=== PATIENT | female | born 1985 | race Caucasian/White ===

== ENCOUNTER → 2020-05-09 10:30 | Outpatient (CLI) | payer BC, SELFPAY ==
--- NOTE | ~2020-05-09 | XR_ITS ---
EXAMINATION: XR shoulder RT min 2V EXAM DATE: 05/09/2020 11:40 INDICATION: No known recent injury provided at this time. Pain of the right shoulder. TECHNIQUE: The following right shoulder projections obtained: frontal projection with internal rotati on, frontal projection with external rotation, Grashey, and axillary (4+ views). There is no prior s tudy for comparison. FINDINGS: No evidence of right shoulder rotator cuff calcific tendinosis. Unremarkable right laine ohumeral and acromioclavicular joints. There are no acute fractures or dislocations identified. Ther e is no subcutaneous gas. The soft tissue is unremarkable. There are no radiopaque foreign bodies. IMPRESSION: 1. Unremarkable right shoulder exam. Reviewed, dictated and finalized at location B.
== END ==
PROVIDERS: PCP Physician Assistant; Visit Provider Physician Assistant
DX: M25.511 Pain in right shoulder (principal)
CPT/HCPCS: 73030

== ENCOUNTER 2020-06-07 10:25 | Emergency (ER) | payer BC, SELFPAY ==
--- NOTE | 2020-06-07 10:48 | ED.UPPEXIN ---
HPI - Extremity Injury (Upper) General Chief Complaint: Extremity Injury, Upper Stated Complaint: right shoulder pain since january Time Seen by Provider: 06/07/20 10:30 Source: patient Mode of arrival: ambulatory Limitations: no limitations History of Present Illness HPI narrative: Patient presents for evaluation of right shoulder that has been persistently bothersome since January. Patient denies known mechanism of injury. Patient has been evaluated by her primary care and has had x-rays and has begun PT in the last week. Patient states that physical therapy warn her that her shoulder may be slightly sore however she is having more than soreness and feels that there is something more complicated occurring with her shoulder. Patient states that her primary care diagnosed her with frozen shoulder. She states that she contacted her primary care with her concerns and they caught her anymore tramadol but she wants additional investigation into the cause of her discomfort. Patient denies chance of due to uterine ablation and her having a vasectomy. Related Data Home Medications Medication Instructions Recorded Confirmed omeprazole 40 mg PO DAILY 08/17/19 naproxen 500 mg tablet 500 mg PO BID 05/09/20 05/09/20 Allergies Allergy/AdvReac Type Severity Reaction Status Date / Time amoxicillin Allergy Unknown Nausea and Verified 09/28/19 09:27 Vomiting diphenhydramine Allergy Unknown Unknown Verified 09/28/19 09:27 AMOXICILLIN TRIHYDRATE Allergy Intermediate VOMITTING Uncoded 09/28/19 09:27 POTASSIUM CLAVULANATE Allergy Intermediate VOMITTING Uncoded 09/28/19 09:27 Review of Systems Review of Systems: Narrative: CONSTITUTIONAL: Denies fever, chills, or sweats. EYES: Denies visual changes, redness, or discharge. ENT: Denies rhinorrhea, congestion, sore throat, or otalgia. CARDIOVASCULAR: Denies chest pain, palpitations, or edema. RESPIRATORY: Denies cough or dyspnea. GASTROINTESTINAL: Denies abdominal pain, nausea, vomiting, or diarrhea. GENITOURINARY: Denies dysuria or hematuria. SKIN: Denies rash or itching. MUSCULOSKELETAL: Right shoulder pain denies back pain or myalgia. NEUROLOGIC: Denies headache, numbness, dizziness, or weakness. PSYCHIATRIC: Denies anxiety or depression. [facility] Social History Social History (Updated 05/09/20 @ 10:00 by Kaila Fried) Social History: Smoking status: Never smoker Second hand tobacco smoke exposure: No Alcohol intake: current Drinks per week: 3 Substance use: never Substance use type: does not use Gender identity (if verbalized by the patient): Female Exam Narrative: Exam Narrative: GENERAL: Well-appearing, well-nourished, and in no acute distress. HEAD: Normocephalic, atraumatic. EYES: PERRLA and EOMI. ENT: Nares clear, no rhinorrhea or epistaxis. Mucous membranes moist. Oropharynx without tonsillar hypertrophy exudate or other lesions. Bilateral TMs pearly hoyt nonbulging CHEST: Clear to auscultation. No respiratory distress. No wheezes rales or rhonchi HEART: Regular rate and rhythm. EXTREMITIES: No outward signs of injury such as swelling, erythema or abrasions. Patient has decreased ability to abduct and pain over 45 degrees in the right shoulder. Patient reports pain to palpation to the anterior portion of the shoulder at rotator. No edema. SKIN: Warm, dry, no rash. NEURO: No focal deficits. Alert and oriented x3. PSYCH: Normal mood and affect. MDM - Extremity Injury (Upper) MDM Narrative Medical decision making narrative: Patient is already had x-ray imaging and has begun physical therapy. Patient denies chance of and has been unaware of where of the contraindications of with a Toradol injection. Patient has been instructed to contact her primary care or seek orthopedics referral as it appears that she may be at the point where MRI imaging highly beneficial for further investigation into the cause of her disco
[2020-06-07 11:11] VITALS: BP 147/90; PULSE 126; RESP 18; TEMP 36.4; O2SAT 100
[2020-06-07] MEDS: KETOROLAC 30 MG/ML VIAL (*BKC) IM (11:16)
== END 2020-06-07 11:28 | disposition home or self-care (01) ==
PROVIDERS: Emergency Provider Emergency Medicine; PCP Physician Assistant
DX: S49.91XA Unspecified injury of right shoulder and upper arm, initial encounter (principal); X58.XXXA Exposure to other specified factors, initial encounter
CPT/HCPCS: 96372; 99283; J1885

== ENCOUNTER 2020-08-20 06:33 | Outpatient (CLI) | payer BC, SELFPAY ==
--- NOTE | 2020-08-22 10:54 | WPDNEUROLOGY ---
Neurology EEG Report General Information Date of Study: 08/20/20 TEST eeg DIAGNOSIS altered sense of smell CONDITION OF RECORDING awake drowsy and sleep EEG NUMBER [id number] CLINICAL HISTORY patient reported for the last couple of months she has been having episodes of headaches and olfactory hallucinations EEG DESCRIPTION old record consists of low-voltage 15 to 21 hertz per 2nd beta activity during drowsiness. Photic stim impression produce normal drive. Hyperventilation not done. Bilateral symmetrical sleep activity seen during sleep. Non paroxysmal. Nonfocal. Nonlateralizing. IMPRESSION No significant abnormalities noted
== END 2020-08-20 06:34 | disposition home or self-care (01) ==
PROVIDERS: PCP Family Medicine; Visit Provider Physician Assistant
DX: R43.9 Unspecified disturbances of smell and taste (principal)
CPT/HCPCS: 95816

== ENCOUNTER → 2020-12-10 06:58 | Outpatient (CLI) | payer BC, SELFPAY ==
[2020-12-10 20:23] LABS: SARS-CoV-2 RNA PCR Negative
== END ==
PROVIDERS: PCP Family Medicine
DX: Z01.812 Encounter for preprocedural laboratory examination (principal); Z20.822 Contact with and (suspected) exposure to COVID-19
CPT/HCPCS: C9803; U0003; U0005

== ENCOUNTER 2022-11-11 10:49 | Outpatient (CLI) | payer BC, SELFPAY ==
--- NOTE | ~2022-11-11 | MR_ITS ---
MRI of the right calf CLINICAL HISTORY: Soft tissue mass TECHNIQUE: T1-weighted and STIR images were acquired in the axial, coronal, and sagittal planes. FINDINGS: Bone marrow signals are unremarkable. No fracture or bone marrow edema. No evidence for ost eomyelitis or periosteal reaction. Visualized joint spaces are intact. No joint effusion identified. There is diffuse edematous change of the medial gastrocnemius muscle belly. Remaining visualized musc ulature and STIR demonstrates normal signal intensity. Subcutaneous soft tissues are unremarkable asi de from minimal subcutaneous soft tissue edema. No focal mass or fluid collection evident. IMPRESSION: Diffuse edematous change of the medial gastrocnemius muscle belly. Correlate for diffuse low-grade mu scle strain, infectious/inflammatory myositis, or possibly denervation edema, though isolated involve ment of this muscle would be atypical. Reviewed, dictated and finalized at [facility]. [employer] IMPRESSION: Diffuse edematous change of the medial gastrocnemius muscle belly. Correlate fo r diffuse low-grade muscle strain, infectious/inflammatory myositis, or possibl y denervation edema, though isolated involvement of this muscle would be atypic al.
== END 2022-11-11 10:50 ==
LOC: MICIMG 10:50
PROVIDERS: PCP Family Medicine; Visit Provider Podiatrist Foot & Ankle Surgery
DX: R22.41 Localized swelling, mass and lump, right lower limb (principal)
CPT/HCPCS: 73718

== ENCOUNTER 2024-02-21 01:46 | Emergency (ER) | payer BC, SELFPAY ==
[2024-02-21] VITALS (24 sets, daily range): BP systolic 130–161; BP diastolic 70–93; PULSE 78–114; RESP 11–19; TEMP 37.4; O2SAT 95–100
--- NOTE | ~2024-02-21 | CT_ITS ---
EXAMINATION: CT abdomen pelvis w con DATE: 02/21/2024 03:07 INDICATION: Right lower quadrant abdominal pain TECHNIQUE: Computed tomography (CT) of the abdomen and pelvis was performed with 100 cc Omnipaque 350 intravenous contrast. The dose-length product was 1665.75 mGy-cm. Automated exposure control and ite rative reconstruction technique were employed. COMPARISON: CT dated 02/02/2018 FINDINGS: Lung bases unremarkable. No significant pleural or pericardial effusion. Heart size normal. Fatty infiltration of the liver. Status post cholecystectomy. The spleen, pancreas, adrenal glands n onobstructive bowel gas pattern. No significant vascular abnormality. No lymphadenopathy. There are a re surgical changes of the anterior abdominal wall. There is nonobstructing right nephrolithiasis. IMPRESSION: 1. No acute abdominal abnormality. 2: Nonobstructing right nephrolithiasis. Reviewed, dictated and finalized at location B.
[2024-02-21 02:08] LABS: Basophils Percent Auto 0.3 % (0.2-1.2); Eosinophils Absolute Auto 0.2 K/mm3 (0-0.3); Eosinophils Percent Auto 1.8 % (0-4.4); Hematocrit 43.6 % (37.0-47.0); Hemoglobin 13.8 g/dL (12.0-15.0); Immature Granulocyte Absolute 0.06 K/mm3 (0.00-0.031); Immature Granulocyte Percent A 0.5 % (0-0.5); Lymphocytes Absolute Auto 5.33 K/mm3 (0.9-3.2); Lymphocytes Percent Auto 40.4 % (18.3-44.2); Mean Corpuscular HGB Conc 31.7 g/dl (32-36); Mean Corpuscular Hemoglobin 26.7 pg (26-34); Mean Corpuscular Volume 84.3 fl (80-100); Mean Platelet Volume 9.9 fl (7.4-10.4); Monocytes Percent Auto 7.2 % (2.6-8.5); Neutrophils Absolute Auto 6.6 K/mm3 (1.3-6.7); Neutrophils Percent Auto 49.8 % (45.5-73.1); Platelet Count Result 324 k/mm3 (150-375); Red Blood Count 5.17 M/mm3 (4.2-5.4); Red Cell Distribution Width 14.6 % (11.5-14.5); White Blood Count 13.2 K/mm3 (4.5-10.0)
[2024-02-21 02:21] LABS: Alanine Aminotransferase 18 U/L (6-35); Albumin Level 4.4 g/dL (3.5-5.1); Alkaline Phosphatase 102 U/L (38-126); Anion Gap 10 mmol/L (4-12); Aspartate Amino Transferase 20 U/L (14-36); Bilirubin,Total 0.4 mg/dL (0.2-1.3); Blood Urea Nitrogen 11 mg/dL (7-17); Calcium 9.5 mg/dL (8.4-10.2); Carbon Dioxide 22 mmol/L (22-30); Chloride 108 mmol/L (98-107); Estimated Glomerular Filt Rate > 60; Glucose 113 mg/dL (65-110); Lipase 65 U/L (23-300); Sodium 140 mmol/L (137-145)
[2024-02-21 02:52] LABS: Appearance Urine Clear (Clear); Bacteria Urine None Seen /hpf; Bilirubin Urine Negative (Negative); Blood Urine Negative (Negative); Color Urine Yellow (Yellow); Glucose Urine UA Negative (Negative); Ketones Urine Negative (Negative); Leukocyte Esterase Ur Trace LEU/UL (Negative); Nitrate Urine Negative (Negative); Non Pathogenic Casts 0-2; Protein Urine Negative (Negative); Specific Grav Ur 1.007 (1.001-1.035); Squamous Epithelial Cell Urine Occasional /hpf (Few); Urobilinogen Urine 0.2 mg/dL (<2.0); WBC Urine 0-5 /hpf (0-3); pH Urine 6.5 (5.0-9.0)
[2024-02-21 02:54] LABS: Add Urine Microscopic? YES
[2024-02-21] MEDS: ONDANSETRON INJ 4 MG/2 ML VIAL IV PUSH (03:14)
[2024-02-21] MEDS: SODIUM CHLORIDE 0.9% IV 1,000 ML 999 ML IV CONT (03:14)
[2024-02-21] MEDS: MORPHINE SULFATE (*CRX) 4 MG/ML INJ IV PUSH (03:14)
--- NOTE | 2024-02-21 04:32 | ED.GENADULT ---
HPI - General Adult General Chief complaint: Abdominal Pain Stated complaint: right lower abd pain Time Seen by Provider: 02/21/24 02:24 History of Present Illness HPI narrative: Patient 38-year-old female presents emergency department chief complaint of right lower quadrant abdominal pain. Patient reports that she has been seen by her OBGYN who started her on antibiotics for probable UTI. The patient reports the pain has been getting worse Stated the pain is sharp reports worse with movement and improved with rest. Related Data Allergies Allergy/AdvReac Type Severity Reaction Status Date / Time amoxicillin Allergy Unknown Nausea and Verified 02/21/24 01:58 Vomiting diphenhydramine Allergy Unknown Unknown Verified 02/21/24 01:58 AMOXICILLIN TRIHYDRATE Allergy Intermediate VOMITTING Uncoded 10/02/23 15:12 POTASSIUM CLAVULANATE Allergy Intermediate VOMITTING Uncoded 10/02/23 15:12 Review of Systems Review of Systems: A 10 system review of systems was completed on the patient and is negative except for what is stated in the HPI. Nursing and ancillary documentation was reviewed. [facility] Past Medical History Medical History (Updated 02/21/24 @ 06:17 by Justice Castle MD) Abnormal uterine bleeding Asthma Bronchitis GERD (gastroesophageal reflux disease) IBS (irritable bowel syndrome) Pneumonia Surgical History Surgical History History of appendectomy History of cholecystectomy History of endometrial ablation History of tonsillectomy Family History Family History Grandparent Hypertension Mother Cerebrovascular accident Family history of Alzheimer's disease Father Family history of lung cancer Other Asthma Family history of coronary artery disease Family history of malignant neoplasm Social History Social History Social History: Smoking status: Never smoker Second hand tobacco smoke exposure: No Alcohol intake: current Drinks per week: 3 Substance use: never Substance use type: does not use Living arrangements: with family Occupation/Education: occupation Gender identity (if verbalized by the patient): Female Sexual Orientation (if Verbalized by the Patient): Straight or Heterosexual Exam Narrative: GENERAL: Well-appearing, well-nourished, and in no acute distress. HEAD: Normocephalic, atraumatic. EYES: PERRLA and EOMI. ENT: Nares clear, no rhinorrhea or epistaxis. Mucous membranes moist. NECK: Supple. CHEST: Clear to auscultation. No respiratory distress. HEART: Regular rate and rhythm. No murmur heard. Normal peripheral pulses. ABDOMEN: Soft, tenderness to palpation right lower quadrant, nondistended, normal active bowel sounds. EXTREMITIES: Normal range of motion. No edema. SKIN: Warm, dry, no rash. NEURO: No focal deficits. Alert and oriented x3. PSYCH: Normal mood and affect. Course Vital Signs Vital signs: Vital Signs Temperature 37.4 C 02/21/24 01:55 Pulse Rate 110 H 02/21/24 01:55 Respiratory Rate 13 02/21/24 01:55 Blood Pressure 141/93 H 02/21/24 01:55 Pulse Oximetry 99 02/21/24 01:55 Oxygen Delivery Room Air 02/21/24 01:55 Temperature 37.4 C 02/21/24 01:55 Pulse Rate 85 02/21/24 03:32 Respiratory Rate 12 02/21/24 03:32 Blood Pressure 144/71 H 02/21/24 03:32 Pulse Oximetry 97 02/21/24 03:32 Oxygen Delivery Room Air 02/21/24 01:55 Medical Decision Making Vital Signs Vital Signs: Vital Signs Temperature 37.4 C 02/21/24 01:55 Pulse Rate 110 H 02/21/24 01:55 Respiratory Rate 13 02/21/24 01:55 Blood Pressure 141/93 H 02/21/24 01:55 Pulse Oximetry 99 02/21/24 01:55 Oxygen Delivery Room Air 02/21/24 01:55 Temperature 37.4 C 02/21/24 01:55 Pulse Rate 85
== END 2024-02-21 06:33 | disposition home or self-care (01) ==
PROVIDERS: Emergency Provider Emergency Medicine; PCP Family Medicine
DX: R10.31 Right lower quadrant pain (principal); J45.909 Unspecified asthma, uncomplicated; K21.9 Gastro-esophageal reflux disease without esophagitis; K58.9 Irritable bowel syndrome, unspecified; Z87.01 Personal history of pneumonia (recurrent); Z90.49 Acquired absence of other specified parts of digestive tract; N20.0 Calculus of kidney
CPT/HCPCS: 36415; 74177; 80053; 81001; 81025; 83690; 85025; 96361; 96374; 96375; 99284; J2270; J2405; J7030; Q9967

== ENCOUNTER 2024-03-07 09:40 | Emergency (ER) | payer BC, SELFPAY ==
[2024-03-07 09:47] VITALS: BP 141/86; PULSE 118; RESP 20; TEMP 36.8; O2SAT 98
--- NOTE | 2024-03-07 10:12 | ED.URI ---
HPI - URI/Sore Throat General Chief Complaint: Upper Respiratory Infection Stated Complaint: Fever/Cough/Chest Pain Time Seen by Provider: 03/07/24 10:00 Source: patient and RN notes reviewed Mode of arrival: ambulatory Limitations: no limitations History of Present Illness HPI Narrative: Patient presents today complaining of a fever that started 2 days ago up to 100.3 with cough that is worse when lying flat, and slight rhinorrhea. Also reports some intermittent shortness of breath. Denies known sick contacts. 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 She has been taking ibuprofen, Tessalon Perles, cough drops, and using an albuterol inhaler with little relief. History of asthma. Related Data Allergies Allergy/AdvReac Type Severity Reaction Status Date / Time amoxicillin Allergy Unknown Nausea and Verified 02/21/24 01:58 Vomiting diphenhydramine Allergy Unknown Unknown Verified 02/21/24 01:58 AMOXICILLIN TRIHYDRATE Allergy Intermediate VOMITTING Uncoded 10/02/23 15:12 POTASSIUM CLAVULANATE Allergy Intermediate VOMITTING Uncoded 10/02/23 15:12 Review of Systems Review of Systems: CONSTITUTIONAL: Denies body aches,chills, or sweats.+ fever EYES: Denies visual changes, redness, or discharge. ENT: Denies congestion, sore throat, or otalgia.+ rhinorrhea CARDIOVASCULAR: Denies chest pain, palpitations, or edema. RESPIRATORY:+ cough, shortness of breath GASTROINTESTINAL: Denies abdominal pain, nausea, vomiting, or diarrhea. GENITOURINARY: Denies dysuria or hematuria. SKIN: Denies rash, itching, or wounds. MUSCULOSKELETAL: Denies back pain, joint pain, or myalgia. NEUROLOGIC: Denies headache, numbness, tingling, or weakness. PSYCH: Denies depression or anxiety. [facility] Past Medical History Medical History (Updated 03/07/24 @ 10:34 by Lexi Buckner, [facility], [facility]) Abnormal uterine bleeding Asthma Bronchitis GERD (gastroesophageal reflux disease) IBS (irritable bowel syndrome) Pneumonia Surgical History Surgical History History of appendectomy History of cholecystectomy History of endometrial ablation History of tonsillectomy Family History Family History Grandparent Hypertension Mother Cerebrovascular accident Family history of Alzheimer's disease Father Family history of lung cancer Other Asthma Family history of coronary artery disease Family history of malignant neoplasm Social History Social History Social History: Smoking status: Never smoker Second hand tobacco smoke exposure: No Alcohol intake: current Drinks per week: 3 Substance use: never Substance use type: does not use Living arrangements: with family Occupation/Education: occupation Gender identity (if verbalized by the patient): Female Sexual Orientation (if Verbalized by the Patient): Straight or Heterosexual Comments At time of signature, I have reviewed and agree with nursing past medical, surgical, social and family history unless otherwise noted. Please see nursing chart for further information. There is no relevant family history pertinent to the presenting complaint Exam Narrative: GENERAL: Mildly ill-appearing, well-nourished, and in no acute distress. HEAD: Normocephalic, atraumatic. EYES: EOMI. No redness or drainage. Conjunctivae normal. ENT: Mucous membranes pink and moist. Nares clear. No rhinorrhea. TMs normal bilaterally. Throat normal. Uvula midline. NECK: Normal AROM. Supple. No lymphadenopathy. CHEST: No respiratory distress. Clear breath sounds. Frequent harsh cough noted. Deep breath elicits coughing episodes. HEART: Regular rate and rhythm. No murmur appreciated. EXTREMITIES: Normal range of motion. No edema. SKIN: Warm, dry, no rash. Capillary refill normal. Normal skin turgor. N
== END 2024-03-07 10:39 | disposition home or self-care (01) ==
PROVIDERS: Emergency Provider Nurse Practitioner; PCP Family Medicine
DX: J06.9 Acute upper respiratory infection, unspecified (principal); J45.901 Unspecified asthma with (acute) exacerbation; Z20.822 Contact with and (suspected) exposure to COVID-19; K21.9 Gastro-esophageal reflux disease without esophagitis
CPT/HCPCS: 87426; 87804; 99213; G0463

== ENCOUNTER 2025-08-04 06:53 | Outpatient (CLI) | payer BC, SELFPAY ==
--- OUTSIDE RECORDS SUMMARY | 2008-01-13 06:48 | XMS_ITS | Continuity of Care Document ---
Author Organization [facility] Address [address] [place] [address] [address] [place] [address] Phone Care Team Providers Care Child Health Associate Name Role Phone Cm OD, Jaspal Unavailable Unavailable Procedures Procedure Date Office/outpatient Visit, [facility] Advance Directives Directive Yes / No Effective Date File Name No Information Encounters Encounter Description Practice Location Reason(s) For Visit Diagnoses Date Provider Providers Copied on Encounter Office/outpat ient Visit, [facility] [[email or web address]], [address] [place] [address] [address], [place], [place], [id number], tel:[phone] [facility] No Information 4-200 8 Cm OD Jaspal. [address] , [address], [place], [address], [place]. tel:[phone] Referring Provider: Kenneth Noel MD F, [address] [place], [address]. tel:[phone] Family History Family Member Type Diagnosis Age At Onset No Information Payers Payer name Insurance type Covered democrat ID Authoriza tion(s) No Information Social History Type Description Quantity Date Captured Comments Sex Female Smoking Status No Information Chief Complaint And Reason For Visit No Information Reason For Referral Reason For Referral No Information History Of Present Illness Encounter Date Complaint History Of Prese nt Illness No Information Functional Status Date Functional Assessmen t No Information Instructions Date Instruction Additional Infor mation No Information Assessments Type Assessment Date No Information Patient Care Teams Name Effective Dates (start - stop) Status Members No Information
--- OUTSIDE RECORDS SUMMARY | 2025-08-04 06:56 | XMS_ITS | Clinical Summary ---
Author Organization [facility] [address] Address [address] [place] [address] Care Team Providers Care Reel Hooker Name Role Phone Esvin Mendoza MD Primary Care Provider Social History Tobacco Use Types Packs/Day Years Used Date Smoking Tobacco: Never Assessed Personal Safety Answer Date Recorded Getting School Help Needed Not on file 12/05 Comments Unknown Sex and Gender Information Value Date Recorded Sex Assigned at Not on file Legal Sex Female 2:16 PM CDT Gender Identity Not on file Sexual Orientation Not on file Plan of Treatment Not on file Insurance Care Teams Reel Hooker Relationship Specialty Start Date End Date Esvin Mendoza MD [address] [facility] [address] [place] [address] PCP - General Family Medicine 06/16/17
--- OUTSIDE RECORDS SUMMARY | 2025-08-04 06:56 | XMS_ITS | Clinical Summary ---
Author Organization [facility] Address [address] [place] [address] Care Team Providers Care Middle [employer] Baseball Coach Name Role Phone Andrew Mendoza MD Primary Care Provider [phone] Source Comments [facility],non-owned Affiliates and Associated Physician Practices is amultiple site organization consisting of ambulatory clinics and hospital sitesin [place] and [place]. This disclosure is being madepursuant to the Care Everywhere program and may not contain all information available regarding this patient. Last updated 18.[facility] Allergies Active Allergy Reactions Criticality Noted Date Comments Augmentin Vomiting 05/23/2019 Medications * Be aware that medications may not be up to date on this document. Alwaysverify current medications with the patient. No known medications Immunizations Immunization Administration Dates Next Due INFLUENZA VACCINE, QUADR. (F LUZONE; FLULAVAL; FLUARIX; AFLURIA QUADRIVALENT; 6MO+), 0.5 ML (IIV4) 08/02/2019 Social History Tobacco Use Types Packs/Day Years Used Date Smoking Tobacco: Never Smokeless Tobacco: Never Comments Unknown Sex and Gender Information Value Date Recorded Sex Assigned at Not on file Legal Sex Female 8:27 AM CDT Gender Identity Not on file Sexual Orientation Not on file Last Filed Vital Signs Vital Sign Reading Time Taken Comments Blood Pressure 110/80 05/23/2019 10:51 AM CDT Pulse 101 05/23/2019 10:51 AM CDT Temperature 36.8 C (98.2 F) 05/23/2019 10:51 AM CDT Respiratory Rate 16 05/23/2019 10:51 AM CDT Oxygen Saturation 98% 05/23/2019 10:51 AM CDT Inhaled Oxygen Concentration - - Weight 132.9 kg (293 lb) 05/23/2019 10:51 AM CDT Height 165.1 cm (5' 5) 05/23/2019 10:51 AM CDT Body Mass Index 48.76 05/23/2019 10:51 AM CDT Plan of Treatment Health Maintenance Due Date Last Done Comments HIV SCREENING 2000 HEPATITIS C SCREENING 08/03/2003 DTAP/TDAP/TD VACCINES (1 - Tdap) 2004 HEPATITIS B VACCINE (1 of 3 - 19+ 3-dose series) 2004 HPV VACCINE (1 - 3-dose SCDM series) 2012 DEPRESSION SCREENING 09/21/2024 COVID-19 VACCINE (1 - 2023-2 5 season) 2025 INFLUENZA VACCINE (#1) 2025 08/02/2019 ZOSTER VACCINE (1 of 2) 2035 HIB VACCINE Aged Out No longer eligi ble based on patient's age to complete this topic MENINGOCOCCAL (Group B) VACC INE SHARED DECISION-MAKING Aged Out No longer eligibl e based on patient's age to complete this topic MENINGOCOCCAL GROUPS A/C/Y/W VACCINE Aged Out No longer eligible b ased on patient's age to complete this topic PNEUMOCOCCAL VACCINE Aged Out No long er eligible based on patient's age to complete [place] [address] [employer]M Care Teams [employer] Baseball Coach Relationship Specialty Start Date End Date Andrew Mendoza MD [address] [place] [address] PCP - General Family Medicine 05/23/19
[2025-08-04 07:34] LABS: Hematocrit 44.9 % (37.0-47.0); Hemoglobin 14.0 g/dL (12.0-15.0); Mean Corpuscular HGB Conc 31.2 g/dl (32-36); Mean Corpuscular Hemoglobin 26.5 pg (26-34); Mean Corpuscular Volume 85.0 fl (80-100); Platelet Count Result 335 k/mm3 (150-375); Red Blood Count 5.28 M/mm3 (4.2-5.4); White Blood Count 10.3 K/mm3 (4.5-10.0)
[2025-08-04 07:55] LABS: Alanine Aminotransferase 20 U/L (6-35); Albumin Level 4.6 g/dL (3.5-5.1); Alkaline Phosphatase 77 U/L (38-126); Anion Gap 9 mmol/L (4-12); Aspartate Amino Transferase 26 U/L (14-36); Bilirubin,Total 0.6 mg/dL (0.2-1.3); Blood Urea Nitrogen 13 mg/dL (7-17); Calcium 9.8 mg/dL (8.4-10.2); Carbon Dioxide 27 mmol/L (22-30); Chloride 104 mmol/L (98-107); Cholesterol 225 mg/dL (0-200); Estimated Glomerular Filt Rate > 60; Glucose 94 mg/dL (65-110); HDL Direct 42 mg/dL; Potassium 4.1 mmol/L (3.4-5.0); Sodium 140 mmol/L (137-145); Total Protein 7.9 g/dL (6.3-8.2); Triglycerides 126 mg/dL (<150)
[2025-08-04 08:14] LABS: Thyroid Stimulating Hormone Reflex 2.080 uIU/mL (0.465-4.68)
== END 2025-08-04 06:54 | disposition home or self-care (01) ==
LOC: ANHLAB 06:54
PROVIDERS: Visit Provider Obstetrics & Gynecology
DX: N92.1 Excessive and frequent menstruation with irregular cycle (principal); E66.9 Obesity, unspecified
CPT/HCPCS: 36415; 80053; 80061; 84443; 85027